=== PATIENT | female | born 1985 | race Caucasian/White ===

== ENCOUNTER 2021-05-05 08:05 | Day surgery (SDC) | payer OTHER ==
[2021-05-04 11:43] VITALS: BMI 28.1
[2021-05-05] MEDS ORDERED: Oxymetazoline HCl 0.05% ( 15 ML ) ONE ×2 (08:27→10:19)
[2021-05-05] MEDS ORDERED: Lidocaine 1% MPF 2 ML VIAL ONE (08:27)
[2021-05-05] MEDS ORDERED: PROPOFOL 0 ML ONE (10:17)
[2021-05-05] MEDS ORDERED: Fentanyl 100 MCG/2 ML VIAL ONE (10:18)
[2021-05-05] MEDS ORDERED: Lidocaine 1% PF 5 ML VIAL ONE (10:18)
[2021-05-05] MEDS ORDERED: PROPOFOL 20 ML ONE (10:18)
[2021-05-05] MEDS ORDERED: CEFAZOLIN 1 GM VIAL ONE (10:25)
[2021-05-05] MEDS ORDERED: Mupirocin 2% Ointment 22 GM Tube ONE (10:43)
[2021-05-05] MEDS ORDERED: Lidocaine 1% w/Epinephrine 1:100K 20 ML VIAL ONE (10:59)
[2021-05-05] MEDS ORDERED: Glycopyrrolate 0.2 MG/ML 5 ML SYRINGE ONE (11:24)
[2021-05-05] MEDS ORDERED: Ondansetron PF 4 MG/2 ML Vial ONE (11:24)
== END 2021-05-05 12:45 | disposition home or self-care (01) ==
LOC: CSHSDC 08:05
PROVIDERS: ATTEND Otolaryngology Plastic Surgery within the Head & Neck
DX: J34.2 Deviated nasal septum (principal); J34.9 Unspecified disorder of nose and nasal sinuses; M95.0 Acquired deformity of nose; J34.3 Hypertrophy of nasal turbinates; J34.89 Other specified disorders of nose and nasal sinuses; Z79.899 Other long term (current) drug therapy; Z20.822 Contact with and (suspected) exposure to COVID-19; R09.81 Nasal congestion
CPT/HCPCS: C1889; J0690; J2405; J2704; J3010; U0003; U0005